=== PATIENT | male | born 2000 | race Caucasian/White ===

== ENCOUNTER 2022-07-06 14:42 | Emergency (ER) | payer OTHER ==
[~2022-07-06] VITALS: Ht 190.5 cm; Wt 72.6 kg
[2022-07-06] MEDS ORDERED: ACETAMINOPHEN ES 500 MG TABLET ONE (15:24)
[2022-07-06] MEDS ORDERED: IV NS 0.9% 1,000 ML BAG IV ONE (15:30)
[2022-07-06] MEDS ORDERED: ACETAMINOPHEN ES 500 MG TABLET PO ONE (15:30)
--- NOTE | 2022-07-06 15:30 | NUR ---
PT came to ER due to lower quadrants abd pain since thursday and foul breath after waking up in the morning.
--- NOTE | 2022-07-06 15:40 | NUR ---
IV fluids started at L AC G20, infusing well. Blood Drawn and sent to lab.
[2022-07-06 15:44] LABS: BASOPHILS % (AUTO) 0.2 % (0.0-2.0); EOSINOPHILS % (AUTO) 1.6 % (0.0-6.0); HEMATOCRIT 43 % (39-51); HEMOGLOBIN 13.9 g/dL (13.5-17.5); LYMPHOCYTES # (AUTO) 1.8 K/uL (0.8-4.8); LYMPHOCYTES % (AUTO) 32.1 % (20.0-44.0); MEAN CORPUSCULAR HGB CONC 33 g/dl (31.0-36.0); MEAN CORPUSCULAR VOLUME 84 fL (80-96); MONOCYTES # (AUTO) 0.4 K/uL (0.1-1.30); MONOCYTES % (AUTO) 6.7 % (2.0-12.0); NEUTROPHILS # (AUTO) 3.4 K/uL (1.8-8.9); NEUTROPHILS % (AUTO) 59.4 % (43.0-81.0); PLATELET COUNT (AUTO) 142 K/uL (150-450); RED BLOOD CELL COUNT(AUTO) 5.07 MIL/uL (4.5-6.0); WHITE BLOOD COUNT (AUTO) 5.7 K/uL (4.3-11.0)
--- NOTE | 2022-07-06 15:45 | NUR ---
Urine specimen collected and sent to lab.
[2022-07-06] MEDS ORDERED: IV NS 0.9% 250 ML IV ONE (15:57)
[2022-07-06] MEDS ORDERED: IOHEXOL-300 100 ML VIAL IV ONE (15:57)
--- NOTE | 2022-07-06 16:00 | NUR ---
John lainez in [facility] - 07/06/22 at 1622 by HUMZA Pt's Mother's
[2022-07-06 16:25] LABS: CALCIUM, SERUM 9.2 mg/dL (8.5-10.1); CREATININE 0.9 mg/dL (0.6-1.3); POTASSIUM 3.8 mmol/L (3.5-5.1)
[2022-07-06 16:31] LABS: ALBUMIN 4.2 g/dL (3.4-5.0); BILIRUBIN,DIRECT 0.1 mg/dL (0.0-0.2); BILIRUBIN,TOTAL 0.4 mg/dL (0.2-1.0); TOTAL PROTEIN, SERUM 8.1 g/dL (6.4-8.2)
[2022-07-06 16:43] LABS: BILIRUBIN,URINE NEGATIVE (NEGATIVE); COLOR,URINE YELLOW (YELLOW); LEUKOCYTE ESTERASE ,URINE NEGATIVE (NEGATIVE); NITRITE, URINE NEGATIVE (NEGATIVE); PROTEIN,URINE NEGATIVE (NEGATIVE); UGLUCOSE NEGATIVE (NEGATIVE); UROBILINOGEN,URINE 0.2 EU/dL (0.2)
--- NOTE | 2022-07-06 17:17 | NUR ---
Patient discharged to home in stable condition. Written and verbal after care instructions given. Patient verbalizes understanding of instruction.
[2022-07-06 17:18] VITALS: BP 140/79
== END 2022-07-06 17:19 | disposition home or self-care (01) ==
LOC: ER 14:53
DX: R10.84 Generalized abdominal pain (principal)
CPT/HCPCS: 99285; 74177; 96360; 85025; 80048; 87086; 83690; 80076; 81003; 36415; J7030; J7050; Q9967